=== PATIENT | female | born 1930 | race Caucasian/White ===

== ENCOUNTER 2017-03-23 14:40 | Inpatient (IN) | payer MEDICARE, BC ==
[2017-03-23] MEDS ORDERED: METOPROLOL TARTRATE 5 MG/5 ML SOL IV ONE ×3 (14:49→15:04)
[2017-03-23] MEDS: METOPROLOL TARTRATE 5 MG/5 ML SOL IV SCH ×3 (14:57→15:12)
[2017-03-23 15:02] LABS: HEMATOCRIT 40 % (35-47); MEAN CORPUSCULAR HGB CONC 32.9 gm/dl (32.0-36.0); MEAN CORPUSCULAR VOLUME 92 fL (81-99)
[2017-03-23] MEDS ORDERED: DIGOXIN 0.25 MG/ML SOL IV ONE (15:21)
[2017-03-23] MEDS ORDERED: METOPROLOL TARTRATE 25 MG TAB PO ONE (15:22)
[2017-03-23] MEDS ORDERED: DIGOXIN 0.25 MG/ML SOL ONE (15:26)
[2017-03-23] MEDS ORDERED: METOPROLOL TARTRATE 25 MG TAB ONE (15:26)
[2017-03-23 15:30] LABS: ALT 21 IU/L (14-63); CALCIUM 8.8 mg/dl (8.5-10.1); GLOM FILT RATE 72 mL/min (>60); POTASSIUM 3.6 mMol/L (3.5-5.1); SODIUM 135 mMol/L (136-145)
[2017-03-23 15:46] LABS: BASOPHILS % (MANUAL) 0 % (0-3); EOSINOPHILS % (MANUAL) 0 % (0-9); LYMPHOCYTES % (MANUAL) 13 % (10-50)
[2017-03-23 15:47] LABS: NORMAL RBCS PRESENT
[2017-03-23] MEDS ORDERED: FUROSEMIDE 40 MG SOL IV ONE (16:00)
[2017-03-23] MEDS ORDERED: FUROSEMIDE 40 MG SOL ONE (16:03)
[2017-03-23] MEDS: SODIUM CHLORIDE 0.9% FLUSH 10 ML SOL IV PRN ×2 (16:12→20:15)
[2017-03-23] MEDS ORDERED: ACETAMINOPHEN 325 MG PO PRN (18:15)
[2017-03-23] MEDS ORDERED: DOCUSATE SODIUM 100 MG SGL PO PRN (18:15)
[2017-03-23] MEDS ORDERED: MAGNESIUM HYDROXIDE 30 ML SUS PO PRN (18:15)
[2017-03-23] MEDS ORDERED: SENNOSIDES A AND B 8.6 MG TAB PO PRN (18:15)
[2017-03-23] MEDS ORDERED: ALBUTEROL NEB SOL 2.5MG/3ML 1 VIAL SOL NEB PRN (18:33)
[2017-03-23] MEDS: PRAVASTATIN SODIUM 20 MG TAB PO SCH (20:04)
[2017-03-23] MEDS: DOCUSATE SODIUM 100 MG SGL PO SCH (20:04)
[2017-03-23] MEDS: SENNOSIDES A AND B 8.6 MG TAB PO SCH (20:05)
[2017-03-23] MEDS: SOLUMEDROL 125 MG/2 ML 125 MG/2 ML PDS IV SCH (20:05)
[2017-03-23] MEDS: ALBUTEROL/IPRATROPIUM 1 VIAL SOL INH SCH (20:07)
[2017-03-23] MEDS: CEFPROZIL 250 MG/5 ML SUSP.RECON PO SCH (20:08)
[2017-03-23] MEDS: FLUTICASONE IH SCH (20:08)
[2017-03-23] MEDS: SALME IH SCH (20:08)
[2017-03-23] MEDS: ENOXAPARIN 40 MG SOL SC SCH (20:09)
[2017-03-24] MEDS: ALBUTEROL/IPRATROPIUM 1 VIAL SOL INH SCH ×4 (01:21→19:16)
[2017-03-24] MEDS: SODIUM CHLORIDE 0.9% FLUSH 10 ML SOL IV PRN ×2 (01:22→08:14)
[2017-03-24] MEDS: SALME IH SCH ×2 (06:17→19:02)
[2017-03-24] MEDS: FLUTICASONE IH SCH ×2 (06:17→19:02)
[2017-03-24 07:56] LABS: CALCIUM 8.6 mg/dl (8.5-10.1); POTASSIUM 3.9 mMol/L (3.5-5.1)
[2017-03-24 08:00] LABS: BASOPHILS % (AUTO) 1 % (0-3); EOSINOPHILS % (AUTO) 0 % (0-9); HEMATOCRIT 41 % (35-47); MEAN CORPUSCULAR HGB CONC 34.5 gm/dl (32.0-36.0); MEAN CORPUSCULAR VOLUME 92 fL (81-99); MONOCYTES % (AUTO) 3.3 % (0-12); NEUTROPHILS % (AUTO) 82.5 % (37-80)
[2017-03-24] MEDS: FUROSEMIDE 40 MG TAB PO SCH (08:12)
[2017-03-24] MEDS: AMLODIPINE 5 MG TAB PO SCH (08:12)
[2017-03-24] MEDS: METOPROLOL SUCCINATE 50 MG ER TAB PO SCH (08:12)
[2017-03-24] MEDS: ASPIRIN EC 81 MG PO SCH (08:13)
[2017-03-24] MEDS: SOLUMEDROL 125 MG/2 ML 125 MG/2 ML PDS IV SCH (08:13)
[2017-03-24] MEDS: CEFPROZIL 250 MG/5 ML SUSP.RECON PO SCH ×2 (08:15→20:45)
[2017-03-24] MEDS ORDERED: DIGOXIN 0.125 MG TAB PO SCH (09:00)
[2017-03-24] MEDS: ENOXAPARIN 40 MG SOL SC SCH (10:34)
[2017-03-24] MEDS: NICOTINE PO PRN ×2 (10:36→20:46)
[2017-03-24] MEDS: FUROSEMIDE 20 MG TAB PO SCH (13:23)
[2017-03-24] MEDS: INCRUSE INH SCH (16:31)
[2017-03-24] MEDS: PRAVASTATIN SODIUM 20 MG TAB PO SCH (20:45)
[2017-03-24] MEDS: SENNOSIDES A AND B 8.6 MG TAB PO SCH (20:45)
[2017-03-24] MEDS: DOCUSATE SODIUM 100 MG SGL PO SCH (20:46)
[2017-03-25] MEDS: ALBUTEROL/IPRATROPIUM 1 VIAL SOL INH SCH ×4 (01:34→19:01)
[2017-03-25] MEDS: SALME IH SCH ×2 (06:09→18:23)
[2017-03-25] MEDS: FLUTICASONE IH SCH ×2 (06:09→18:23)
[2017-03-25 07:35] LABS: BASOPHILS % (AUTO) 0 % (0-3); EOSINOPHILS % (AUTO) 0 % (0-9); HEMATOCRIT 38 % (35-47); MEAN CORPUSCULAR HGB CONC 34.1 gm/dl (32.0-36.0); MEAN CORPUSCULAR VOLUME 92 fL (81-99); MONOCYTES % (AUTO) 8.1 % (0-12); NEUTROPHILS % (AUTO) 74.7 % (37-80)
[2017-03-25 07:40] LABS: CALCIUM 8.6 mg/dl (8.5-10.1); POTASSIUM 3.3 mMol/L (3.5-5.1)
[2017-03-25] MEDS: ASPIRIN EC 81 MG PO SCH (09:33)
[2017-03-25] MEDS: PREDNISONE 20 MG TAB PO SCH (09:33)
[2017-03-25] MEDS: METOPROLOL SUCCINATE 50 MG ER TAB PO SCH (09:33)
[2017-03-25] MEDS: FUROSEMIDE 40 MG TAB PO SCH (09:33)
[2017-03-25] MEDS: AMLODIPINE 5 MG TAB PO SCH (09:33)
[2017-03-25] MEDS: CEFPROZIL 250 MG/5 ML SUSP.RECON PO SCH ×2 (09:34→20:50)
[2017-03-25] MEDS: INCRUSE INH SCH (09:43)
[2017-03-25] MEDS: ENOXAPARIN 40 MG SOL SC SCH (09:44)
[2017-03-25] MEDS: POTASSIUM CHLORIDE 10 MEQ TER PO SCH (10:58)
[2017-03-25] MEDS: FUROSEMIDE 20 MG TAB PO SCH (11:00)
[2017-03-25 17:41] VITALS: RESP 18
[2017-03-25] MEDS: SENNOSIDES A AND B 8.6 MG TAB PO SCH (20:50)
[2017-03-25] MEDS: DOCUSATE SODIUM 100 MG SGL PO SCH (20:50)
[2017-03-25] MEDS: PRAVASTATIN SODIUM 20 MG TAB PO SCH (20:50)
[2017-03-25] MEDS: NICOTINE PO PRN (22:08)
[2017-03-26] MEDS: ALBUTEROL/IPRATROPIUM 1 VIAL SOL INH SCH ×3 (01:43→12:51)
[2017-03-26 01:48] VITALS: TEMP 98.5
[2017-03-26] MEDS: FLUTICASONE IH SCH (06:25)
[2017-03-26] MEDS: SALME IH SCH (06:25)
[2017-03-26 07:15] LABS: BASOPHILS % (AUTO) 1 % (0-3); EOSINOPHILS % (AUTO) 0 % (0-9); HEMATOCRIT 36 % (35-47); MEAN CORPUSCULAR HGB CONC 34.5 gm/dl (32.0-36.0); MEAN CORPUSCULAR VOLUME 93 fL (81-99); MONOCYTES % (AUTO) 8.3 % (0-12); NEUTROPHILS % (AUTO) 70.4 % (37-80)
[2017-03-26 07:34] LABS: CALCIUM 8.2 mg/dl (8.5-10.1)
[2017-03-26 07:38] LABS: POTASSIUM 3.6 mMol/L (3.5-5.1)
[2017-03-26 07:54] VITALS: BP 107/55
[2017-03-26] MEDS: INCRUSE INH SCH (08:10)
[2017-03-26] MEDS ORDERED: ALBUTEROL NEB SOL 2.5MG/3ML 1 VIAL SOL NEB PRN (08:28)
[2017-03-26] MEDS: METOPROLOL SUCCINATE 50 MG ER TAB PO SCH (09:30)
[2017-03-26] MEDS: ASPIRIN EC 81 MG PO SCH (09:30)
[2017-03-26] MEDS: POTASSIUM CHLORIDE 10 MEQ TER PO SCH (09:30)
[2017-03-26] MEDS: PREDNISONE 20 MG TAB PO SCH (09:30)
[2017-03-26] MEDS: FUROSEMIDE 40 MG TAB PO SCH (09:30)
[2017-03-26] MEDS: AMLODIPINE 5 MG TAB PO SCH (09:30)
[2017-03-26] MEDS: ENOXAPARIN 40 MG SOL SC SCH (09:38)
[2017-03-26] MEDS: CEFPROZIL 250 MG/5 ML SUSP.RECON PO SCH (09:38)
[2017-03-26] MEDS: NICOTINE PO PRN (11:14)
[2017-03-26] MEDS: FUROSEMIDE 20 MG TAB PO SCH (12:50)
[2017-03-26 14:22] VITALS: PULSE 69; O2SAT 90
== END 2017-03-26 14:05 | disposition home or self-care (01) | DRG 309 ==
LOC: ED 14:40 → ACUTE CARE 16:14 → UNDOADMIN 16:14 → ACUTE CARE 18:30
PROVIDERS: ADMIT Family Medicine; ATTEND Family Medicine
DX: I48.91 Unspecified atrial fibrillation (principal); R06.02 Shortness of breath; R05 Cough; J44.1 Chronic obstructive pulmonary disease with (acute) exacerbation; I50.9 Heart failure, unspecified; I11.0 Hypertensive heart disease with heart failure; Z72.0 Tobacco use
CPT/HCPCS: 36415; 71010; 80048; 80053; 80162; 83880; 84484; 85007; 85025; 85027; 93005; 93012; 94150; 94640; 94664; 96374; 96375; 99284; 99285; J1160; J1650; J1940; J2930; J7603; J7620

== ENCOUNTER 2017-05-22 15:44 | Inpatient (IN) | payer MEDICARE, BC ==
[2017-05-22] MEDS ORDERED: DILTIAZEM 5 MG/ML SOL IV ONE (16:18)
[2017-05-22 16:50] LABS: BASOPHILS % (AUTO) 2 % (0-3); EOSINOPHILS % (AUTO) 4 % (0-9); HEMATOCRIT 37 % (35-47); MEAN CORPUSCULAR HGB CONC 33.6 gm/dl (32.0-36.0); MEAN CORPUSCULAR VOLUME 90 fL (81-99); MONOCYTES % (AUTO) 10.2 % (0-12); NEUTROPHILS % (AUTO) 66.3 % (37-80)
[2017-05-22] MEDS: SODIUM CHLORIDE 0.9% FLUSH 10 ML SOL IV SCH (17:09)
[2017-05-22 17:13] LABS: ALBUMIN 2.9 gm/dl (3.4-5.0); CALCIUM 8.8 mg/dl (8.5-10.1)
[2017-05-22 17:18] LABS: POTASSIUM 3.8 mMol/L (3.5-5.1)
[2017-05-22] MEDS ORDERED: FUROSEMIDE 40 MG SOL IV ONE (18:26)
[2017-05-22] MEDS ORDERED: NICOTINE PO PRN (18:26)
[2017-05-22] MEDS ORDERED: SENNOSIDES A AND B 8.6 MG TAB PO PRN (18:28)
[2017-05-22] MEDS ORDERED: ACETAMINOPHEN 325 MG PO PRN (18:28)
[2017-05-22] MEDS ORDERED: [UNRECOGNIZED DRUG - OTHER] PO PRN (18:28)
[2017-05-22] MEDS ORDERED: ALBUTEROL NEB SOL 2.5MG/3ML 1 VIAL SOL NEB PRN (18:28)
[2017-05-22] MEDS ORDERED: DOCUSATE SODIUM 100 MG SGL PO PRN (18:28)
[2017-05-22] MEDS ORDERED: MAGNESIUM HYDROXIDE 30 ML SUS PO PRN (18:28)
[2017-05-22] MEDS ORDERED: ENOXAPARIN 60 MG SOL SC SCH (18:30)
[2017-05-22] MEDS ORDERED: ALBUTEROL/IPRATROPIUM 1 VIAL SOL INH PRN (18:32)
[2017-05-22] MEDS: SALME IH SCH (19:52)
[2017-05-22] MEDS: FLUTICASONE IH SCH (19:52)
[2017-05-22] MEDS: ENOXAPARIN 60 MG SOL SC SCH (20:11)
[2017-05-22] MEDS: DOCUSATE SODIUM 100 MG SGL PO SCH (20:12)
[2017-05-22] MEDS: SENNOSIDES A AND B 8.6 MG TAB PO SCH (20:12)
[2017-05-22] MEDS: PRAVASTATIN SODIUM 20 MG TAB PO SCH (20:13)
[2017-05-23] MEDS: SODIUM CHLORIDE 0.9% FLUSH 10 ML SOL IV SCH ×3 (01:06→18:47)
[2017-05-23] MEDS: FLUTICASONE IH SCH ×3 (06:20→21:51)
[2017-05-23] MEDS: SALME IH SCH ×3 (06:20→21:51)
[2017-05-23 07:28] LABS: BASOPHILS % (AUTO) 2 % (0-3); EOSINOPHILS % (AUTO) 6 % (0-9); HEMATOCRIT 34 % (35-47); MEAN CORPUSCULAR HGB CONC 33.9 gm/dl (32.0-36.0); MEAN CORPUSCULAR VOLUME 90 fL (81-99); MONOCYTES % (AUTO) 11.5 % (0-12); NEUTROPHILS % (AUTO) 56.9 % (37-80)
[2017-05-23 07:44] LABS: CALCIUM 8.7 mg/dl (8.5-10.1); POTASSIUM 3.4 mMol/L (3.5-5.1)
[2017-05-23] MEDS ORDERED: GUAIFENESIN 200 MG/10 ML SOL PO PRN (08:10)
[2017-05-23] MEDS ORDERED: POTASSIUM CHLORIDE 10 MEQ TER PO ONE (09:00)
[2017-05-23] MEDS ORDERED: VITAMIN D PO SCH (09:00)
[2017-05-23] MEDS ORDERED: POTASSIUM CHLORIDE 10 MEQ TER PO SCH (09:00)
[2017-05-23] MEDS ORDERED: ASPIRIN EC 81 MG PO SCH (09:00)
[2017-05-23] MEDS ORDERED: PSYLLIUM 3.6 GM/1 TBS PDR PO PRN ×2 (09:15)
[2017-05-23] MEDS: ENOXAPARIN 40 MG SOL SC SCH (10:22)
[2017-05-23] MEDS: ASPIRIN EC 81 MG PO SCH (10:27)
[2017-05-23] MEDS: DIGOXIN 0.125 MG TAB PO SCH (10:29)
[2017-05-23] MEDS: FUROSEMIDE 40 MG TAB PO SCH ×2 (10:29→13:33)
[2017-05-23] MEDS: METOPROLOL SUCCINATE 50 MG ER TAB PO SCH (10:30)
[2017-05-23] MEDS: AMLODIPINE 5 MG TAB PO SCH (10:30)
[2017-05-23] MEDS: CHOLECALCIFEROL 1,000 IU TAB PO SCH (10:31)
[2017-05-23] MEDS: ENOXAPARIN 60 MG SOL SC SCH (12:12)
[2017-05-23] MEDS ORDERED: METOPROLOL SUCCINATE 50 MG ER TAB PO ONE (18:19)
[2017-05-23] MEDS: PRAVASTATIN SODIUM 20 MG TAB PO SCH (20:30)
[2017-05-23] MEDS: DOCUSATE SODIUM 100 MG SGL PO SCH (20:30)
[2017-05-23] MEDS: SENNOSIDES A AND B 8.6 MG TAB PO SCH (20:31)
[2017-05-23 21:33] VITALS: RESP 20
[2017-05-24] MEDS: SODIUM CHLORIDE 0.9% FLUSH 10 ML SOL IV SCH ×2 (02:30→09:57)
[2017-05-24 07:31] LABS: BASOPHILS % (AUTO) 2 % (0-3); EOSINOPHILS % (AUTO) 5 % (0-9); HEMATOCRIT 36 % (35-47); MEAN CORPUSCULAR HGB CONC 33.7 gm/dl (32.0-36.0); MEAN CORPUSCULAR VOLUME 91 fL (81-99); MONOCYTES % (AUTO) 10.5 % (0-12); NEUTROPHILS % (AUTO) 60.7 % (37-80)
[2017-05-24 07:38] LABS: CALCIUM 8.8 mg/dl (8.5-10.1)
[2017-05-24 07:44] LABS: POTASSIUM 4.4 mMol/L (3.5-5.1)
[2017-05-24] MEDS: ASPIRIN EC 81 MG PO SCH (08:25)
[2017-05-24] MEDS: METOPROLOL SUCCINATE 50 MG ER TAB PO SCH (08:26)
[2017-05-24] MEDS: FUROSEMIDE 40 MG TAB PO SCH ×2 (08:26→12:03)
[2017-05-24] MEDS: DIGOXIN 0.125 MG TAB PO SCH (08:26)
[2017-05-24] MEDS: AMLODIPINE 5 MG TAB PO SCH (08:26)
[2017-05-24] MEDS: CHOLECALCIFEROL 1,000 IU TAB PO SCH (08:27)
[2017-05-24] MEDS: ENOXAPARIN 40 MG SOL SC SCH (08:33)
[2017-05-24 08:39] VITALS: BP 114/71; TEMP 98.1
[2017-05-24] MEDS: SALME IH SCH (09:56)
[2017-05-24] MEDS: FLUTICASONE IH SCH (09:56)
[2017-05-24 12:41] VITALS: PULSE 61; O2SAT 92
== END 2017-05-24 12:40 | disposition home or self-care (01) | DRG 310 ==
LOC: ACUTE CARE 15:55
PROVIDERS: ADMIT Family Medicine; ATTEND Family Medicine
PROC: F01ZDFZ Gait and/or Balance Assessment using Assistive, Adaptive, Supportive or Protective Equipment (ICD-10-PCS; principal; 2017-05-23)
PROC: F01ZBZZ Bed Mobility Assessment (ICD-10-PCS; 2017-05-23)
PROC: F01ZCZZ Transfer Assessment (ICD-10-PCS; 2017-05-23)
DX: I48.91 Unspecified atrial fibrillation (principal); I50.9 Heart failure, unspecified; I11.0 Hypertensive heart disease with heart failure; Z99.81 Dependence on supplemental oxygen; J44.9 Chronic obstructive pulmonary disease, unspecified
CPT/HCPCS: 36415; 71010; 80048; 80053; 83880; 84484; 85025; 93005; 93012; 94640; J1650; J1940; J7603; J7620

== ENCOUNTER 2017-06-30 11:01 | Observation (INO) | payer MEDICARE, BC ==
[2017-06-30 11:41] LABS: BASOPHILS % (AUTO) 1 % (0-3); EOSINOPHILS % (AUTO) 3 % (0-9); HEMATOCRIT 40 % (35-47); MEAN CORPUSCULAR HGB CONC 33.3 gm/dl (32.0-36.0); MEAN CORPUSCULAR VOLUME 94 fL (81-99); MONOCYTES % (AUTO) 11.7 % (0-12); NEUTROPHILS % (AUTO) 64.4 % (37-80)
[2017-06-30] MEDS ORDERED: DILTIAZEM ER 120 MG C24 ONE (11:43)
[2017-06-30] MEDS ORDERED: DILTIAZEM ER 120 MG C24 PO SCH (11:45)
[2017-06-30 12:00] LABS: CALCIUM 8.7 mg/dl (8.5-10.1); POTASSIUM 3.8 mMol/L (3.5-5.1)
[2017-06-30] MEDS ORDERED: DILTIAZEM 5 MG/ML SOL IV ONE ×2 (12:44→12:51)
[2017-06-30] MEDS ORDERED: SODIUM CHLORIDE 0.9% 1000ML 1,000 ML IV SCH (13:00)
[2017-06-30] MEDS ORDERED: SODIUM CHLORIDE 0.9% 1000ML 500 ML IV SCH (13:08)
[2017-06-30] MEDS ORDERED: GUAIFENESIN 200 MG/10 ML SOL PO PRN (15:32)
[2017-06-30] MEDS ORDERED: DOCUSATE SODIUM 100 MG SGL PO PRN (15:32)
[2017-06-30] MEDS ORDERED: [UNRECOGNIZED DRUG - OTHER] PO PRN (15:32)
[2017-06-30] MEDS ORDERED: ACETAMINOPHEN 325 MG PO PRN (15:32)
[2017-06-30] MEDS ORDERED: ALBUTEROL/IPRATROPIUM 1 VIAL SOL INH PRN (15:32)
[2017-06-30] MEDS ORDERED: SENNOSIDES A AND B 8.6 MG TAB PO PRN (15:32)
[2017-06-30] MEDS ORDERED: MAGNESIUM HYDROXIDE 30 ML SUS PO PRN ×2 (15:32→15:48)
[2017-06-30] MEDS ORDERED: FLUTICASONE IH SCH (15:45)
[2017-06-30] MEDS ORDERED: SALME IH SCH (15:45)
[2017-06-30] MEDS: IPRATROPIUM BROMIDE 1 VIAL SOL NEB SCH ×2 (16:09→20:48)
[2017-06-30] MEDS ORDERED: WARFARIN SODIUM 5 MG TAB PO SCH (18:00)
[2017-06-30] MEDS: FLUTICASONE IH SCH (20:55)
[2017-06-30] MEDS: SALME IH SCH (20:55)
[2017-06-30] MEDS ORDERED: PRAVASTATIN SODIUM 20 MG TAB PO SCH (21:00)
[2017-06-30] MEDS: SODIUM CHLORIDE 0.9% FLUSH 10 ML SOL IV SCH (21:01)
[2017-07-01] MEDS: IPRATROPIUM BROMIDE 1 VIAL SOL NEB SCH ×2 (05:22→10:25)
[2017-07-01] MEDS: SODIUM CHLORIDE 0.9% FLUSH 10 ML SOL IV SCH (06:05)
[2017-07-01 07:27] LABS: BASOPHILS % (AUTO) 1 % (0-3); EOSINOPHILS % (AUTO) 4 % (0-9); HEMATOCRIT 39 % (35-47); MEAN CORPUSCULAR HGB CONC 32.8 gm/dl (32.0-36.0); MEAN CORPUSCULAR VOLUME 95 fL (81-99); MONOCYTES % (AUTO) 10.8 % (0-12); NEUTROPHILS % (AUTO) 60.2 % (37-80)
[2017-07-01 07:43] VITALS: BP 125/66; TEMP 97.9; O2SAT 98
[2017-07-01 07:44] LABS: CALCIUM 8.5 mg/dl (8.5-10.1); POTASSIUM 3.8 mMol/L (3.5-5.1)
[2017-07-01] MEDS: SALME IH SCH (08:08)
[2017-07-01] MEDS: FLUTICASONE IH SCH (08:08)
[2017-07-01] MEDS ORDERED: CHOLECALCIFEROL 1,000 IU TAB PO SCH (09:00)
[2017-07-01] MEDS ORDERED: PSYLLIUM 3.6 GM/1 TBS PDR PO SCH (09:00)
[2017-07-01] MEDS ORDERED: METOPROLOL SUCCINATE 50 MG ER TAB PO SCH (09:00)
[2017-07-01] MEDS ORDERED: DIGOXIN 0.125 MG TAB PO SCH (09:00)
[2017-07-01] MEDS ORDERED: ASPIRIN 325 MG TAB PO SCH (09:00)
[2017-07-01] MEDS ORDERED: VITAMIN D PO SCH (09:00)
[2017-07-01 10:29] VITALS: RESP 20
[2017-07-01 12:04] VITALS: PULSE 60
[2017-07-03] MEDS ORDERED: WARFARIN SODIUM 7.5 MG TAB PO SCH (18:00)
== END 2017-07-01 12:25 | disposition home or self-care (01) | DRG 310 ==
LOC: ED 11:01 → UNDOADMOB 14:44 → ACUTE CARE 14:44
PROVIDERS: ADMIT Emergency Medicine; ATTEND Emergency Medicine
DX: I48.91 Unspecified atrial fibrillation (principal); I50.9 Heart failure, unspecified
CPT/HCPCS: 36415; 80048; 80162; 83735; 83880; 84484; 85025; 85610; 93005; 93012; 94640; 94762; 99285; J7620

== ENCOUNTER 2018-09-02 17:54 | Emergency (ER) | payer MEDICARE, BC ==
[2018-09-02 17:54] VITALS: O2SAT 98
[2018-09-02] MEDS ORDERED: SODIUM CHLORIDE 0.9% 1000ML 1,000 ML IV SCH (18:30)
[2018-09-02 18:32] VITALS: BP 150/76; PULSE 62; RESP 16; TEMP 96.7
[2018-09-02] MEDS ORDERED: ONDANSETRON 4 MG ODT BU ONE (18:38)
[2018-09-02 18:52] LABS: BASOPHILS % (AUTO) 1 % (0-3); EOSINOPHILS % (AUTO) 1 % (0-9); HEMATOCRIT 40 % (35-47); LYMPHOCYTES % (AUTO) 16.5 % (10-50); MEAN CORPUSCULAR HEMOGLOBIN 30.6 pg (27.0-32.0); MEAN CORPUSCULAR HGB CONC 32.5 gm/dl (32.0-36.0); MEAN CORPUSCULAR VOLUME 94 fL (81-99); MONOCYTES % (AUTO) 8.4 % (0-12); NEUTROPHILS % (AUTO) 73.8 % (37-80)
[2018-09-02 18:57] LABS: CALCIUM 8.8 mg/dl (8.5-10.1); CARBON DIOXIDE 40.8 mEq/L (21-32); CREATININE 0.76 mg/dl (0.60-1.00); POTASSIUM 3.3 mMol/L (3.5-5.1)
[2018-09-02 19:11] LABS: INR 4.55 (0.86-1.12)
[2018-09-02 19:36] LABS: APPEARANCE,URINE Clear; BILIRUBIN,URINE NEGATIVE (NEGATIVE); COLOR,URINE Yellow; GLUCOSE, URINE (UA) NEGATIVE (NEGATIVE); KETONES,URINE TRACE (NEGATIVE); LEUKOCYTE ESTERASE ,URINE TRACE (NEGATIVE); NITRATE,URINE NEGATIVE (NEGATIVE); OCCULT BLOOD,URINE NEGATIVE (NEG-TRACE); UROBILINOGEN,URINE 0.2 (0.2-1.0 EU)
[2018-09-02 20:10] LABS: BACTERIA 1+ (< 1+); CRYSTALS NEGATIVE (0-3 AVE/HPF); RBC,URINE 0-2 (0-3AV/HPF)
== END 2018-09-02 20:43 | disposition home or self-care (01) | DRG 641 ==
LOC: ED 17:54
DX: E86.0 Dehydration (principal); R11.0 Nausea; R13.10 Dysphagia, unspecified; I48.91 Unspecified atrial fibrillation; R00.2 Palpitations; R91.1 Solitary pulmonary nodule; Z79.01 Long term (current) use of anticoagulants
CPT/HCPCS: 80048; 81001; 85025; 85610; 87088; 96365; 99283; 99284

== ENCOUNTER 2018-09-06 16:03 | Inpatient (IN) | payer MEDICARE, BC ==
[2018-09-06 16:28] LABS: BASOPHILS % (AUTO) 1 % (0-3); EOSINOPHILS % (AUTO) 0 % (0-9); HEMATOCRIT 42 % (35-47); HEMOGLOBIN 13.5 gm/dl (12.0-15.5); LYMPHOCYTES % (AUTO) 15.1 % (10-50); MEAN CORPUSCULAR HEMOGLOBIN 30.5 pg (27.0-32.0); MEAN CORPUSCULAR HGB CONC 32.6 gm/dl (32.0-36.0); MEAN CORPUSCULAR VOLUME 94 fL (81-99); MONOCYTES % (AUTO) 6.6 % (0-12); NEUTROPHILS % (AUTO) 77.2 % (37-80)
[2018-09-06 16:38] LABS: CALCIUM 8.9 mg/dl (8.5-10.1); CARBON DIOXIDE 39.8 mEq/L (21-32); CREATININE 0.87 mg/dl (0.60-1.00); POTASSIUM 3.2 mMol/L (3.5-5.1)
[2018-09-06] MEDS ORDERED: SODIUM CHLORIDE 0.9% 500 ML 500 ML IV ONE (16:54)
[2018-09-06 18:17] LABS: APPEARANCE,URINE Clear; BILIRUBIN,URINE NEGATIVE (NEGATIVE); COLOR,URINE Yellow; GLUCOSE, URINE (UA) NEGATIVE (NEGATIVE); KETONES,URINE NEGATIVE (NEGATIVE); LEUKOCYTE ESTERASE ,URINE NEGATIVE (NEGATIVE); NITRATE,URINE NEGATIVE (NEGATIVE); OCCULT BLOOD,URINE NEGATIVE (NEG-TRACE); PH,URINE 7.5; UROBILINOGEN,URINE 0.2 (0.2-1.0 EU)
[2018-09-06 18:26] LABS: EPITHELIAL CELLS 0-1 (SQUAMOUS); RBC,URINE NEG (0-3AV/HPF); WBC,URINE 0-1 (0-5AV/HPF)
[2018-09-06 18:27] LABS: BACTERIA RARE (< 1+); CRYSTALS NEGATIVE (0-3 AVE/HPF)
[2018-09-06] MEDS ORDERED: POTASSIUM CHLORIDE 2 MEQ/ML 40 MEQ, LIDOCAINE HCL 1% MDV 2 ML in SODIUM CHLORIDE 0.9% 5... IV ONE (18:50)
[2018-09-06] MEDS ORDERED: [UNRECOGNIZED DRUG - OTHER] PO PRN (19:01)
[2018-09-06] MEDS ORDERED: DOCUSATE SODIUM 100 MG SGL PO PRN (19:01)
[2018-09-06] MEDS ORDERED: ONDANSETRON 4 MG ODT PO PRN (19:01)
[2018-09-06] MEDS ORDERED: LIDOCAINE HCL 1% MPF 30 SOL ONE (19:36)
[2018-09-06] MEDS ORDERED: POTASSIUM CHLORIDE 2 MEQ/ML SOL IV ONE (19:37)
[2018-09-06] MEDS: SODIUM CHLORIDE 0.9% FLUSH 10 ML SOL IV SCH (20:10)
[2018-09-06] MEDS: SALME INH SCH (20:11)
[2018-09-06] MEDS: FLUTICASONE INH SCH (20:11)
[2018-09-06] MEDS: IPRATROPIUM BROMIDE 1 VIAL SOL NEB SCH (20:17)
[2018-09-06] MEDS: METOPROLOL SUCCINATE 50 MG ER TAB PO SCH (20:27)
[2018-09-07] MEDS: IPRATROPIUM BROMIDE 1 VIAL SOL NEB SCH ×4 (01:58→20:35)
[2018-09-07] MEDS: SODIUM CHLORIDE 0.9% FLUSH 10 ML SOL IV SCH ×3 (03:00→20:42)
[2018-09-07] MEDS: ACETAMINOPHEN 325 MG PO PRN ×2 (07:00→14:33)
[2018-09-07 07:32] LABS: CALCIUM 8.3 mg/dl (8.5-10.1); CREATININE 0.67 mg/dl (0.60-1.00)
[2018-09-07 07:56] LABS: CARBON DIOXIDE 36.9 mEq/L (21-32); POTASSIUM 4.2 mMol/L (3.5-5.1)
[2018-09-07] MEDS: METOPROLOL SUCCINATE 50 MG ER TAB PO SCH ×2 (09:17→20:35)
[2018-09-07] MEDS: SENNOSIDES A AND B 8.6 MG TAB PO PRN (09:17)
[2018-09-07] MEDS: CHOLECALCIFEROL 1,000 IU TAB PO SCH (09:17)
[2018-09-07] MEDS: SALME INH SCH ×2 (09:18→20:35)
[2018-09-07] MEDS: POLYETHYLENE GLYCOL 17 GM/1 TBS PDS PO PRN (09:18)
[2018-09-07] MEDS: DIGOXIN 0.125 MG TAB PO SCH (09:18)
[2018-09-07] MEDS: FLUTICASONE INH SCH ×2 (09:18→20:35)
[2018-09-08] MEDS: APAP/HYDROCODONE 1 EACH TABLET PO PRN ×2 (02:05→19:26)
[2018-09-08] MEDS: IPRATROPIUM BROMIDE 1 VIAL SOL NEB SCH ×4 (02:07→19:33)
[2018-09-08] MEDS: SODIUM CHLORIDE 0.9% FLUSH 10 ML SOL IV SCH ×3 (04:45→21:24)
[2018-09-08] MEDS: DIGOXIN 0.125 MG TAB PO SCH (10:10)
[2018-09-08] MEDS: METOPROLOL SUCCINATE 50 MG ER TAB PO SCH ×3 (10:10→21:25)
[2018-09-08] MEDS: CHOLECALCIFEROL 1,000 IU TAB PO SCH (10:12)
[2018-09-08] MEDS: FLUTICASONE INH SCH (10:12)
[2018-09-08] MEDS: SALME INH SCH (10:12)
[2018-09-08] MEDS: POLYETHYLENE GLYCOL 17 GM/1 TBS PDS PO PRN (10:14)
[2018-09-08] MEDS: PANTOPRAZOLE SODIUM 40 MG ECT PO SCH (16:14)
[2018-09-08] MEDS: SENNOSIDES A AND B 8.6 MG TAB PO PRN (16:14)
[2018-09-09] MEDS: IPRATROPIUM BROMIDE 1 VIAL SOL NEB SCH ×4 (01:12→20:11)
[2018-09-09] MEDS: SALME INH SCH ×3 (06:27→20:11)
[2018-09-09] MEDS: FLUTICASONE INH SCH ×3 (06:27→20:11)
[2018-09-09] MEDS: SODIUM CHLORIDE 0.9% FLUSH 10 ML SOL IV SCH ×3 (06:28→20:12)
[2018-09-09] MEDS ORDERED: OMEPRAZOLE 20 MG CAPSULE PO SCH (07:00)
[2018-09-09] MEDS: DIGOXIN 0.125 MG TAB PO SCH (09:19)
[2018-09-09] MEDS: CHOLECALCIFEROL 1,000 IU TAB PO SCH (09:20)
[2018-09-09] MEDS: POLYETHYLENE GLYCOL 17 GM/1 TBS PDS PO PRN (09:20)
[2018-09-09] MEDS: METOPROLOL SUCCINATE 50 MG ER TAB PO SCH ×2 (09:20→20:11)
[2018-09-09] MEDS: PANTOPRAZOLE SODIUM 40 MG ECT PO SCH ×2 (09:20→19:43)
[2018-09-09] MEDS: ACETAMINOPHEN 325 MG PO PRN ×2 (09:21→20:10)
[2018-09-09] MEDS: SENNOSIDES A AND B 8.6 MG TAB PO PRN (20:11)
[2018-09-10] MEDS: IPRATROPIUM BROMIDE 1 VIAL SOL NEB SCH ×2 (01:24→06:46)
[2018-09-10 06:53] VITALS: O2SAT 100
[2018-09-10 07:30] VITALS: BP 177/76; PULSE 62; RESP 16; TEMP 97.7
[2018-09-10] MEDS: APAP/HYDROCODONE 1 EACH TABLET PO PRN (08:44)
[2018-09-10] MEDS: CHOLECALCIFEROL 1,000 IU TAB PO SCH (08:47)
[2018-09-10] MEDS: METOPROLOL SUCCINATE 50 MG ER TAB PO SCH (08:47)
[2018-09-10] MEDS: DIGOXIN 0.125 MG TAB PO SCH (08:47)
[2018-09-10] MEDS: POLYETHYLENE GLYCOL 17 GM/1 TBS PDS PO PRN (08:48)
[2018-09-10] MEDS: SALME INH SCH (09:34)
[2018-09-10] MEDS: FLUTICASONE INH SCH (09:34)
[2018-09-10] MEDS: PANTOPRAZOLE SODIUM 40 MG ECT PO SCH (11:00)
[2018-09-11] MEDS ORDERED: FUROSEMIDE 40 MG TAB PO SCH (11:00)
== END 2018-09-10 12:35 | disposition hospice, inpatient (51) | DRG 392 ==
LOC: INFUSION 16:03 → ACUTE CARE 18:30
PROVIDERS: ADMIT Family Medicine; ATTEND Family Medicine
DX: K76.9 Liver disease, unspecified (principal); R19.00 Intra-abdominal and pelvic swelling, mass and lump, unspecified site; R91.8 Other nonspecific abnormal finding of lung field; K57.90 Diverticulosis of intestine, part unspecified, without perforation or abscess without bleeding; I71.4 Abdominal aortic aneurysm, without rupture; R10.9 Unspecified abdominal pain; C34.90 Malignant neoplasm of unspecified part of unspecified bronchus or lung; C79.9 Secondary malignant neoplasm of unspecified site; E87.1 Hypo-osmolality and hyponatremia; Z79.01 Long term (current) use of anticoagulants; I48.91 Unspecified atrial fibrillation; I50.814 Right heart failure due to left heart failure; E87.6 Hypokalemia
CPT/HCPCS: 36415; 74176; 80048; 81001; 85025; 93012; 94640; 96365; J3480; A9270; A9270-GY; J2001